=== PATIENT | male | born 1935 | race Caucasian/White ===

== ENCOUNTER 2019-08-13 00:30 | Inpatient (IN) | payer OTHER ==
[~2019-08-13] VITALS: Ht 180.3 cm; Wt 88.0 kg
[2019-08-13] VITALS (21 sets, daily range): BP systolic 84–136
--- NOTE | 2019-08-13 00:30 | NUR ---
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 Pt sent from [facility] r/t oxygen desaturation. Pts eyes open, tachypneic, mouth breathing, accessory muscle use, expiratory rales, SPO2 60% on mask with Neb tx in progress. Dr. Muñoz and RT called to bedside. Pt arrives with PICC line to LUE, no blood return, easy NS flush. G-tube secure with dsg clean, dry, intact. F/C secure and patent draining yellow urine to bag.
--- NOTE | 2019-08-13 00:35 | NUR ---
Dr. Muñoz at bedside.
--- NOTE | 2019-08-13 00:40 | NUR ---
RT at bedside to obtain ABG. SPO2 62% with good wave form on electronic device monitor. Pt DNR status. Dr. Muñoz aware.
[2019-08-13] MEDS ORDERED: IPRATROPIUM BROM 0.5 MG/2.5 ML VIAL.NEB (ATROVENT) INH ONE (00:45)
[2019-08-13] MEDS ORDERED: ALBUTEROL SULFATE 0.083% 2.5 MG/3 ML VIAL.NEB INH ONE (00:45)
--- NOTE | 2019-08-13 00:50 | NUR ---
Nitropaste noted to left chest wall. B/P 102/68. Nitropaste immediately removed and site cleaned, pat dry. Per ALS, Dionne Oliveira stated that pt was gesturing to chest and they interpreted as pt was experiencing C/P, therefore they placed Nitropaste.
--- NOTE | 2019-08-13 00:55 | NUR ---
# 18 gauge angiocath placed to RAC. Use of asceptic technique. Opsite placed over site. Blood return noted. Blood for lab drawn from site. Flushed with 10 cc of normal saline. No evidence of infiltration noted. Patient tolerated well.
--- NOTE | 2019-08-13 01:00 | NUR ---
RT at bedside. Neb tx continues. Pt remains tachypneic, RR 34, SPO2 66% and confirmed with portable O2 monitor.
--- NOTE | 2019-08-13 01:05 | NUR ---
Nasal tracheal sxn x 2 per RT. Scant amount of thick white sputum removed. SPO2 61% post sxn.
--- NOTE | 2019-08-13 01:10 | NUR ---
X-ray at bedside.
--- NOTE | 2019-08-13 01:25 | NUR ---
BiPAP settings per RT: ST, IPAP 14, EPAP 6, FiO2 100%, f 18.
--- NOTE | 2019-08-13 01:25 | NUR ---
Pt SPO2 67%. Pt placed on BiPAP per RT. SPO2 89%.
[2019-08-13 01:30] LABS: PLATELET COUNT (AUTO) 297 K/uL (130-430); WHITE BLOOD COUNT (AUTO) 14.3 K/uL (4.8-10.8)
[2019-08-13 01:35] LABS: BASOPHILS # (AUTO) 0.1 K/uL (0.0-0.2); BASOPHILS % (AUTO) 0.6 % (0.0-2.0); EOSINOPHILS # (AUTO) 0.1 K/uL (0.0-0.4); EOSINOPHILS % (AUTO) 0.8 % (0.0-4.0); HEMATOCRIT 41.7 % (36-54); HEMOGLOBIN 13.4 g/dL (14.0-18.0); LYMPHOCYTES # (AUTO) 3.7 K/uL (1.0-5.5); LYMPHOCYTES % (AUTO) 26.1 % (20.5-51.5); MEAN CORPUSCULAR HEMOGLOBIN 29 pg (27-31); MEAN CORPUSCULAR HGB CONC 32 % (32-36); MEAN CORPUSCULAR VOLUME 91 fL (79.0-98.0); MONOCYTES # (AUTO) 0.8 K/uL (0.0-1.0); MONOCYTES % (AUTO) 5.5 % (1.7-9.3); NEUTROPHILS # (AUTO) 9.6 K/uL (1.8-7.7); RED BLOOD CELL COUNT(AUTO) 4.59 MIL/uL (4.2-6.2); RED CELL DISTRIBUTION WIDTH 15.1 % (9.0-15.0)
[2019-08-13] MEDS ORDERED: MERO500V IV ×2 (01:37→01:52)
[2019-08-13] MEDS ORDERED: BISA10SU61 RC (01:37)
[2019-08-13] MEDS ORDERED: ONDA4VIA52 (01:37)
[2019-08-13 01:39] LABS: ANION GAP 10 (5-15); CALCIUM 8.3 mg/dL (8.4-11.0); CHLORIDE 100 mmol/L (98-107); CREATININE 1.17 mg/dL (0.55-1.30); POTASSIUM 4.6 mmol/L (3.5-5.1); SODIUM SERUM 138 mmol/L (136-145); UREA NITROGEN, BLOOD 31 mg/dL (8-21)
[2019-08-13] MEDS ORDERED: CARV6.2554 GT (01:39)
--- NOTE | 2019-08-13 01:40 | NUR ---
VSS, SPO2 100% on BiPAP.
[2019-08-13] MEDS ORDERED: DOCU-144 GT (01:44)
[2019-08-13] MEDS ORDERED: LEVO100T9 GT (01:46)
[2019-08-13] MEDS ORDERED: IPRA3AMP9 INH ×2 (01:47→01:48)
[2019-08-13 01:50] LABS: GLUCOSE 408 mg/dL (70-99)
[2019-08-13] MEDS ORDERED: NITR30OI TD (01:54)
[2019-08-13 01:56] LABS: ALANINE AMINOTRANSFERASE 61 U/L (12-78); ALBUMIN 2.1 g/dL (3.4-4.8); ASPARTATE AMINOTRANSFERASE 31 U/L (10-37)
[2019-08-13] MEDS ORDERED: ONDA2VIA IV (01:57)
[2019-08-13] MEDS ORDERED: PIPERACILLIN/TAZO 3.38 GM in D5W 50 ML IV ONE (02:00)
[2019-08-13] MEDS ORDERED: NACL 0.9% 2,000 ML IV ONE (02:00)
--- NOTE | 2019-08-13 02:00 | NUR ---
Pt resting quietly, BiPAP continues with no changes in settings. SPO2 100%. Family members at bedside, no needs verbalized at this time.
[2019-08-13] MEDS ORDERED: INSU100V9 SQ (02:07)
[2019-08-13] MEDS ORDERED: INSU100V42 (02:12)
[2019-08-13] MEDS ORDERED: FURO10VI27 IVP (02:13)
--- NOTE | 2019-08-13 02:55 | NUR ---
Pt resting quietly, BiPAP continues with no changes in settings. SPO2 98%. Family members at bedside, no needs verbalized at this time.
--- NOTE | 2019-08-13 03:00 | NUR ---
Family members at bedside to include pt.'s , daughter and son-n-law. No needs verbalized at this time.
[2019-08-13] MEDS ORDERED: PIPERACILLIN/TAZOBACTAM 3.375 GM/VIAL (ZOSYN) IV ONE (03:07)
--- NOTE | 2019-08-13 03:10 | NUR ---
Informed family members that prior to admit and as per standard of practice, F/C is to be changed. states that she does not want a new F/C placed.
[2019-08-13] MEDS ORDERED: NS 500 ML IV ONE (03:30)
--- NOTE | 2019-08-13 03:30 | NUR ---
Pt resting quietly, BiPAP continues with no changes in settings. SPO2 98%. Family member at bedside, no needs verbalized at this time.
[2019-08-13] MEDS ORDERED: PIPERACILLIN/TAZO 3.375 GM in NS 50 ML IV ONE (04:00)
--- NOTE | 2019-08-13 04:00 | NUR ---
Pt resting quietly, VSS, BiPAP continues with no changes in settings. SPO2 99%. Family members at bedside, no needs verbalized at this time.
--- NOTE | 2019-08-13 05:00 | NUR ---
Pt resting quietly, BiPAP continues with no changes in settings. SPO2 100%. Family member at bedside, no needs verbalized at this time.
--- NOTE | 2019-08-13 05:24 | NUR ---
Lab at bedside to draw second Lactic Acid.
--- NOTE | 2019-08-13 05:27 | NUR ---
Patient will be admitted to care of Fernando Jones Admitted to ICU unit. Will go to room 4. Belongings list completed. Complete and up to date summary report printed. SBAR report to be given at bedside with opportunity for questions.
--- NOTE | 2019-08-13 06:22 | NUR ---
CONSULTATION PAGED/CALLED Reason for Consultation: ARF Person Who was Notified: VERONICA Consulting Physician: DR. JEROME Ordering Physician: DR. COTTRELL
--- NOTE | 2019-08-13 06:23 | NUR ---
CONSULTATION PAGED/CALLED Reason for Consultation: CHF Person Who was Notified: VERONICA Consulting Physician: DR. TRINIDAD Ordering Physician: DR. COTTRELL
--- NOTE | 2019-08-13 06:30 | NUR ---
Recieved from ER via gurney and on bipap.Appear to be in no acute distress, open eyes and follow simple commands but non-verbal.has existing picc line over left arm and an ivl , gauge #[address] ac.Has back cath to osd , existing from the [facility] facility but the refused for it to be changed.has GT in place and clamped.Dr Perez contacted and made aware pt is here in icu but no additional orders were given.He said he's coming this morning to see the pt.
[2019-08-13] MEDS: NORMAL SALINE 5 ML DISP.SYRIN IVF SCH ×3 (06:47→22:23)
--- NOTE | 2019-08-13 07:15 | NUR ---
Report received from night RN using SBAR.
--- NOTE | 2019-08-13 07:15 | NUR ---
Report given to Young and aware that he has to do complete admission.
--- NOTE | 2019-08-13 08:00 | NUR ---
MD Rounds Dr Perez bedside. Orders received.
[2019-08-13] MEDS ORDERED: ACETAMINOPHEN 325 MG TABLET PO PRN (08:15)
[2019-08-13] MEDS ORDERED: POTASSIUM CHLORIDE 20 MEQ TAB.PRT.SR PO PRN (08:15)
[2019-08-13] MEDS ORDERED: ONDANSETRON HCL 4 MG/2 ML VIAL IVP PRN (08:15)
[2019-08-13] MEDS ORDERED: MAGNESIUM SULFATE 50 ML IV PRN (08:15)
[2019-08-13] MEDS ORDERED: MUPIROCIN 2% TOPICAL OINTMENT 22 GM NS PRN (08:15)
[2019-08-13] MEDS ORDERED: DOCUSATE SODIUM 100 MG CAPSULE PO PRN (08:15)
[2019-08-13] MEDS ORDERED: MORPHINE 2 MG/ML INJ. SYRINGE IVP PRN ×2 (08:15)
[2019-08-13] MEDS ORDERED: LORazepam 2 MG/ML VIAL IVP PRN (08:15)
[2019-08-13] MEDS ORDERED: DEXTROSE 50% JECT 50 ML DISP.SYRIN IVP PRN (08:15)
--- NOTE | 2019-08-13 08:30 | NUR ---
MD Rounds Dr Perdomo bedside. Orders received.
--- NOTE | 2019-08-13 09:00 | NUR ---
MD Rounds Dr Padma merino. Orders received.
[2019-08-13] MEDS: INSULIN LISPRO SLIDING SCALE 100 UNITS/ML VIAL (humaLOG) SUBCUT PRN ×2 (09:45→21:39)
[2019-08-13] MEDS ORDERED: CARVEDILOL 6.25 MG TABLET (COREG) PO ONE (10:00)
--- NOTE | 2019-08-13 10:00 | NUR ---
ECHOCARDIOGRAM bedside Called Dr Rouse with results. EF of 20% noted. Called Dr Perez to inform as well.
[2019-08-13] MEDS: HEPARIN SODIUM,PORCINE 5000 UNITS/ML VIAL SUBCUT SCH ×2 (11:01→21:39)
[2019-08-13] MEDS: FUROSEMIDE 40 MG/4 ML VIAL IVP SCH ×2 (11:02→21:34)
[2019-08-13] MEDS: cefTRIAXone 1 GM in D5W 50 ML IV SCH (11:02)
--- NOTE | 2019-08-13 12:59 | NUR ---
AM ASSESSMENT PT on Bipap 100% 12/02 PS 8. PT is tachypneic. No other visible signs of pain. Pt unable to verbally communicate. Pt family bedside. Will conduct intake assessment. Bed locked and in lowest position with call light in place. Will continue to monitor.
--- NOTE | 2019-08-13 13:07 | NUR ---
Called Dr Perez regarding PT feeding. Orders received for glucerna 1.5 @ 15cc/hr through PEG-T. With 250cc flush with NS Q6H.
[2019-08-13] MEDS: metroNIDAZOLE 500 mg/NS 100 ML IV SCH ×2 (14:00→23:43)
--- NOTE | 2019-08-13 14:00 | NUR ---
Initiated tube feeding through PEG tube. Glucerna 1.5 @ 15cc/hr.
--- NOTE | 2019-08-13 15:40 | NUR ---
MD ROUNDS Dr Perdomo bedside. Orders received.
--- NOTE | 2019-08-13 15:46 | NUR ---
Atetmpted to call a consult to Dr. Montez many times. The number goes to voice mail that requests up to 24 hours to call back. Message left. Called medical staff office to get a different number and had to leave a message on their VM as well.
[2019-08-13] MEDS: NACL 0.9% 1,000 ML IV SCH (15:57)
--- NOTE | 2019-08-13 16:10 | NUR ---
Still unable to get a hold of Dr. Montez via the office/exchange. Texted Dr Montez and informed him of an ICU consult without listing patients name. He replyed back "ok".
--- NOTE | 2019-08-13 16:20 | NUR ---
1320 TITRATED FIO2 DOWN TO 50%. SPO2 100, HR 89. PT TOLERATING WELL. CONTINUE TO MONITOR PT.
--- NOTE | 2019-08-13 16:31 | NUR ---
Soft restraint Place on PT left arm. Notified MD. Will continue to monitor.
--- NOTE | 2019-08-13 17:24 | NUR ---
1705 TITRATED FIO2 DOWN TO 40%. SPO2 99%, HR 85. PT TOLERATING WELL.
--- NOTE | 2019-08-13 19:15 | NUR ---
Endorsement Provided shift report to night RN using SBAR
--- NOTE | 2019-08-13 19:25 | NUR ---
Closing notes PT resting comfortably. No signs of distress or pain. Bed locked and in lowest position. Lights on in room.
--- NOTE | 2019-08-13 19:55 | NUR ---
Opening Note Pt in bed, Alert but confused. Able to track. Pt SR on the monitor. BIPAP noted, /. FIO2 40%. Pt has SULTANA PICC in place, and RAC18g SL. No s/s of infiltration noted, C/D/I. Pt has G-tube in place, running tubefeeding. tolerating well, no residual noted. Pt has back in place draining urine to gravity. Pt has restraint to Lt wrist for pulling on BIPAP. Bed locked in lowest position, call light in reach, and safety precautions in place. Will continue to monitor.
[2019-08-13] MEDS ORDERED: VANCOMYCIN HCL 1 GM/NS PREMIX 250 ML IV ONE (20:30)
[2019-08-13] MEDS ORDERED: CARVEDILOL 6.25 MG TABLET (COREG) PO SCH (21:00)
[2019-08-13] MEDS ORDERED: VANCOMYCIN HCL 1000 MG/VIAL IV ONE (21:22)
[2019-08-13 23:42] LABS: BILIRUBIN,URINE NEGATIVE (NEGATIVE); BLOOD, URINE 1+ (NEGATIVE); CLARITY/URINE CLEAR (CLEAR); COLOR,URINE YELLOW (YELLOW); GLUCOSE,URINE NEGATIVE (NEGATIVE); KETONES,URINE NEGATIVE (NEGATIVE); LEUKOCYTE ESTERASE ,URINE 2+ (NEGATIVE); NITRITE, URINE NEGATIVE (NEGATIVE); PH,URINE 7.5 (5.0-8.0); PROTEIN URINE NEGATIVE (NEGATIVE); UROBILINOGEN,URINE 0.2 (0.2-1.0)
[2019-08-13 23:49] LABS: BACTERIA,URINE MODERATE /HPF (None Seen)
[2019-08-14] VITALS (24 sets, daily range): BP systolic 95–139
--- NOTE | 2019-08-14 00:24 | NUR ---
RN Rounds Pt in bed asleep, no s/s of distress noted. Pt tolerating feeding, no residual noted. Will continue to monitor.
--- NOTE | 2019-08-14 03:46 | NUR ---
RN Rounds Pt in bed asleep. No s/s of distress noted. VSS. Will continue to monitor.
--- NOTE | 2019-08-14 05:00 | NUR ---
CHG CHG bath given and linens changed, Pt tolerated well. Will continue to monitor.
[2019-08-14] MEDS: NORMAL SALINE 5 ML DISP.SYRIN IVF SCH ×3 (05:23→22:08)
[2019-08-14] MEDS: metroNIDAZOLE 500 mg/NS 100 ML IV SCH ×3 (05:23→22:06)
--- NOTE | 2019-08-14 06:55 | NUR ---
Closing Note Pt in bed asleep. Alert to person and able to speak, but non comprehensible. BIPAP 14/6. FIO2 35%. No s/s of distress noted. Pt has G-tube running tubefeeding. Tolerating well, no residual noted. NS running in SULTANA PICC Line. Flushed with Ns, but no blood return noted. RAC 18g SL in place. Villavicencio catheter draining urine to gravity. Bed locked in lowest position, call light in reach, and safety precautions precautions in place, Will endorse to oncoming RN.
[2019-08-14 07:12] LABS: BASOPHILS % (AUTO) 0.4 % (0.0-2.0); EOSINOPHILS % (AUTO) 0.4 % (0.0-4.0); HEMATOCRIT 32.4 % (36-54); HEMOGLOBIN 10.8 g/dL (14.0-18.0); LYMPHOCYTES # (AUTO) 1.4 K/uL (1.0-5.5); MEAN CORPUSCULAR HEMOGLOBIN 29 pg (27-31); MEAN CORPUSCULAR HGB CONC 33 % (32-36); MEAN CORPUSCULAR VOLUME 88 fL (79.0-98.0); MONOCYTES # (AUTO) 1.2 K/uL (0.0-1.0); MONOCYTES % (AUTO) 10.2 % (1.7-9.3); NEUTROPHILS # (AUTO) 8.7 K/uL (1.8-7.7); PLATELET COUNT (AUTO) 184 K/uL (130-430); RED BLOOD CELL COUNT(AUTO) 3.68 MIL/uL (4.2-6.2); RED CELL DISTRIBUTION WIDTH 14.7 % (9.0-15.0); WHITE BLOOD COUNT (AUTO) 11.4 K/uL (4.8-10.8)
--- NOTE | 2019-08-14 07:16 | NUR ---
Endorsement Pt report given to oncoming RN at bedside via SBAR approach.
--- NOTE | 2019-08-14 07:20 | NUR ---
Opening Note Received patient report from endorsing RN via SBAR
--- NOTE | 2019-08-14 08:00 | NUR ---
AM ASSESSMENT. PT ALERT WHEN APPROACHED, FULL MASK BIPAP IN USE, O2 SATURATION 99%, RESTRAINT REMOVED AND REPLACED TO LEFT WRIST, TURNED AND REPOSITIONED TO HIS SIDE, PLACED HIS HEAD AT 35 DEGREE ANGLE AFTER CARE, TUBE FEEDING VIA GTUBE AT 15 ML PER HR, GTUBE SITE CLEAN, WEBSTER CATHETER DRAINING WELL.
[2019-08-14 08:03] LABS: ALANINE AMINOTRANSFERASE 39 U/L (12-78); ALBUMIN 1.8 g/dL (3.4-4.8); ANION GAP 6 (5-15); ASPARTATE AMINOTRANSFERASE 35 U/L (10-37); CALCIUM 8.5 mg/dL (8.4-11.0); CHLORIDE 107 mmol/L (98-107); CREATININE 0.95 mg/dL (0.55-1.30); GLUCOSE 175 mg/dL (70-99); POTASSIUM 3.9 mmol/L (3.5-5.1); SODIUM SERUM 143 mmol/L (136-145); THYROID STIMULATING HORMONE 4.98 uIu/mL (0.36-3.74); UREA NITROGEN, BLOOD 35 mg/dL (8-21)
--- NOTE | 2019-08-14 08:30 | NUR ---
Md Round Dr. Rouse at bedside assessing patient, physician entered orders
[2019-08-14] MEDS ORDERED: METOLAZONE 5 MG TABLET PO ONE (08:45)
[2019-08-14] MEDS: FUROSEMIDE 40 MG/4 ML VIAL IVP SCH ×2 (08:55→20:51)
[2019-08-14] MEDS: cefTRIAXone 1 GM in D5W 50 ML IV SCH (08:57)
[2019-08-14] MEDS: CARVEDILOL 6.25 MG TABLET (COREG) PO SCH ×2 (08:59→20:52)
[2019-08-14] MEDS: HEPARIN SODIUM,PORCINE 5000 UNITS/ML VIAL SUBCUT SCH ×2 (09:00→21:10)
--- NOTE | 2019-08-14 09:43 | NUR ---
RT NOTES Placed pt on 4L n/c w/ reservoir (oxymizer) per dr ortiz's order. Pt. said breathing became difficult, placed back on bipap w/ same settings w/ 50% FIO2 per ABG result and titration order. will monitor pt.
[2019-08-14] MEDS: VANCOMYCIN HCL 1,000 MG in NS 250 ML IV SCH ×2 (09:55→20:53)
--- NOTE | 2019-08-14 10:30 | NUR ---
MD Round Dr. Perdomo at bedside and assessing patient, entered orders
--- NOTE | 2019-08-14 11:28 | NUR ---
Nutrition Update Marky Scale 15 noted. Pt admitted for acute respiratory failure. Diet: Glucerna 1.5 at 15 ml/hr, Free Water Flush: 250 via GT BMI: 26.9 kg/m2 RD to follow per nutrition care standards.
[2019-08-14] MEDS: INSULIN LISPRO SLIDING SCALE 100 UNITS/ML VIAL (humaLOG) SUBCUT PRN ×2 (12:11→17:45)
--- NOTE | 2019-08-14 14:30 | NUR ---
Dietitian Recommendations * Recommend Glucerna 1.5 at 65 ml/hr, Free Water Flush: 100 ml Q6h via GT Provides: 2340 kcal/day, 129 gm protein/day, and 1584 ml free water/day Meets: 98% of upper end of estimated caloric needs and 98% of lower end of estimated protein needs Monitor/Evaluation Comment RD spoke w/ Dr. Doe who was agreeable w/ MARTINE rec LP, RD Please refer to Nutrition Assessment for details. Addendum: 08/14/19 at [address] Amended: Links added.
[2019-08-14] MEDS: NACL 0.9% 1,000 ML IV SCH (14:52)
--- NOTE | 2019-08-14 17:00 | NUR ---
Nursing Note Tube-feeding rate increased to 65mL/hr as prescribed by MD. Current residual is 10mL
--- NOTE | 2019-08-14 18:00 | NUR ---
Nursing Note Current residual is 10mL, patient tolerating tube feeding rate of 65mL/hr. 100mL of free water flush was given, patient tolerated well.
--- NOTE | 2019-08-14 19:25 | NUR ---
Closing Note Patient report given to receiving RN via SBAR communication
[2019-08-15] VITALS (20 sets, daily range): BP systolic 90–127
[2019-08-15] MEDS: metroNIDAZOLE 500 mg/NS 100 ML IV SCH ×3 (05:38→21:49)
[2019-08-15] MEDS: NORMAL SALINE 5 ML DISP.SYRIN IVF SCH ×3 (05:43→22:18)
[2019-08-15 06:57] LABS: ALANINE AMINOTRANSFERASE 35 U/L (12-78); ALBUMIN 1.8 g/dL (3.4-4.8); ANION GAP 7 (5-15); ASPARTATE AMINOTRANSFERASE 23 U/L (10-37); CALCIUM 8.7 mg/dL (8.4-11.0); CHLORIDE 105 mmol/L (98-107); CREATININE 0.87 mg/dL (0.55-1.30); GLUCOSE 196 mg/dL (70-99); POTASSIUM 3.6 mmol/L (3.5-5.1); SODIUM SERUM 141 mmol/L (136-145); TOTAL BILIRUBIN 0.6 mg/dL (0.0-1.0); UREA NITROGEN, BLOOD 42 mg/dL (8-21)
[2019-08-15] MEDS: INSULIN LISPRO SLIDING SCALE 100 UNITS/ML VIAL (humaLOG) SUBCUT PRN ×3 (07:04→16:28)
--- NOTE | 2019-08-15 07:25 | NUR ---
RECEIVED NURSING REPORT FROM DEAN SHABAZZ R.N
--- NOTE | 2019-08-15 07:30 | NUR ---
SEE PATIENT, ORDERED FOLLOW UP LAB IN A.M
--- NOTE | 2019-08-15 08:40 | NUR ---
Dr. BOATENG SEE PATIENT, ORDERED KEEP SAME ANTIBIOTICS THERAPY
[2019-08-15 09:04] LABS: BASOPHILS # (AUTO) 0.1 K/uL (0.0-0.2); BASOPHILS % (AUTO) 0.6 % (0.0-2.0); EOSINOPHILS # (AUTO) 0.1 K/uL (0.0-0.4); EOSINOPHILS % (AUTO) 1.6 % (0.0-4.0); HEMATOCRIT 32.2 % (36-54); HEMOGLOBIN 10.7 g/dL (14.0-18.0); LYMPHOCYTES # (AUTO) 1.4 K/uL (1.0-5.5); LYMPHOCYTES % (AUTO) 15.6 % (20.5-51.5); MEAN CORPUSCULAR HEMOGLOBIN 30 pg (27-31); MEAN CORPUSCULAR HGB CONC 33 % (32-36); MEAN CORPUSCULAR VOLUME 89 fL (79.0-98.0); MONOCYTES # (AUTO) 0.9 K/uL (0.0-1.0); MONOCYTES % (AUTO) 10.6 % (1.7-9.3); NEUTROPHILS # (AUTO) 6.2 K/uL (1.8-7.7); NEUTROPHILS % (AUTO) 71.6 % (40.0-70.0); PLATELET COUNT (AUTO) 181 K/uL (130-430); RED BLOOD CELL COUNT(AUTO) 3.61 MIL/uL (4.2-6.2); RED CELL DISTRIBUTION WIDTH 14.6 % (9.0-15.0); WHITE BLOOD COUNT (AUTO) 8.7 K/uL (4.8-10.8)
[2019-08-15] MEDS: cefTRIAXone 1 GM in D5W 50 ML IV SCH (10:01)
[2019-08-15] MEDS: VANCOMYCIN HCL 1,000 MG in NS 250 ML IV SCH ×2 (10:04→20:32)
[2019-08-15] MEDS: CARVEDILOL 6.25 MG TABLET (COREG) PO SCH ×2 (10:05→20:34)
[2019-08-15] MEDS: FUROSEMIDE 40 MG/4 ML VIAL IVP SCH ×2 (10:06→20:32)
[2019-08-15] MEDS: HEPARIN SODIUM,PORCINE 5000 UNITS/ML VIAL SUBCUT SCH ×2 (10:11→20:46)
--- NOTE | 2019-08-15 11:28 | NUR ---
RT NOTES Pt off of bipap and on 6L oxymizer per Dr Perdomo's order. No adverse reactions noted. @1135 pt cont to tolerate w/ no signs of distress. Saturation 94% H.R 61 R.R. 19. at bedside. Will monitor pt.
--- NOTE | 2019-08-15 11:30 | NUR ---
AT 1123 A.M, SEE PATIENT, ORDERED HOLD BIPAP ,CHANGED TO OXIMIZER 6 LPM, O2 SAT. 94-97%, KEEP CLOSE MONITOR
--- NOTE | 2019-08-15 11:50 | NUR ---
ORDERED GIVE FREE WATER 100 ML VIA G-T EVERY 6 HOURS
--- NOTE | 2019-08-15 13:28 | NUR ---
RT NOTES Pt. cont. to tolerate being off of bipap. No distress noted. saturation 100% H.R 57
[2019-08-15] MEDS: NACL 0.9% 1,000 ML IV SCH (16:22)
--- NOTE | 2019-08-15 19:12 | NUR ---
GIVE COMPLETE NURSING REPORT TO MILD DISABILITIES TEACHERDRU SHABAZZ R.N
[2019-08-16] VITALS (11 sets, daily range): BP systolic 101–118
[2019-08-16] MEDS: NACL 0.9% 1,000 ML IV SCH (02:50)
[2019-08-16 05:50] LABS: BASOPHILS % (AUTO) 0.6 % (0.0-2.0); EOSINOPHILS # (AUTO) 0.2 K/uL (0.0-0.4); EOSINOPHILS % (AUTO) 2.1 % (0.0-4.0); HEMATOCRIT 29.9 % (36-54); LYMPHOCYTES # (AUTO) 1.4 K/uL (1.0-5.5); LYMPHOCYTES % (AUTO) 18.6 % (20.5-51.5); MEAN CORPUSCULAR HEMOGLOBIN 29 pg (27-31); MEAN CORPUSCULAR HGB CONC 34 % (32-36); MEAN CORPUSCULAR VOLUME 88 fL (79.0-98.0); MONOCYTES # (AUTO) 0.6 K/uL (0.0-1.0); MONOCYTES % (AUTO) 8.9 % (1.7-9.3); NEUTROPHILS # (AUTO) 5.1 K/uL (1.8-7.7); NEUTROPHILS % (AUTO) 69.8 % (40.0-70.0); PLATELET COUNT (AUTO) 186 K/uL (130-430); RED CELL DISTRIBUTION WIDTH 14.6 % (9.0-15.0); WHITE BLOOD COUNT (AUTO) 7.3 K/uL (4.8-10.8)
--- NOTE | 2019-08-16 05:55 | NUR ---
ADMISSION RECEIVED PATIENT FROM ICU, PATIENT A/OX1, FOLLOWS SIMPLE COMMANDS, VITALS STABLE, NO SIGNS OF ANY PAIN AND DISCOMFORT NOTED. NEEDS ATTENDED TO. SAFETY, FALL AND ASPIRATION PRECAUTION IN PLACED. BED IN LOW AND LOCKED POSITION. BED ALARM ON. WILL CONTINUE TO MONITOR.
[2019-08-16 06:01] LABS: CALCIUM 8.6 mg/dL (8.4-11.0); CHLORIDE 103 mmol/L (98-107); CREATININE 0.92 mg/dL (0.55-1.30); GLUCOSE 180 mg/dL (70-99); POTASSIUM 3.3 mmol/L (3.5-5.1); SODIUM SERUM 140 mmol/L (136-145); UREA NITROGEN, BLOOD 42 mg/dL (8-21)
[2019-08-16] MEDS: metroNIDAZOLE 500 mg/NS 100 ML IV SCH ×3 (06:03→21:34)
[2019-08-16] MEDS: NORMAL SALINE 5 ML DISP.SYRIN IVF SCH ×3 (06:04→21:40)
[2019-08-16 06:14] LABS: ANION GAP 5 (5-15)
--- NOTE | 2019-08-16 06:45 | NUR ---
CLOSING NOTES ACCU CHECK DONE, BLOOD SUGAR 135. NO INSULIN COVERAGE PER SLIDING SCALE. ALL NEEDS ATTENDED TO. NO PAIN AND DISCOMFORT NOTED, VITALS STABLE. WILL ENDORSE TO INCOMING SHIFT NURSE.
--- NOTE | 2019-08-16 07:20 | NUR ---
Opening Note Received bedside report from endorsing RN for continuation of care. Received patient awake and resting in bed, no signs or symptoms of acute distress noted. Bed locked in lowest position, bed alarm on, and call light within reach. Fall and safety precautions in place.
--- NOTE | 2019-08-16 08:45 | NUR ---
Dr. Rouse in to see patient. No new orders.
[2019-08-16] MEDS: CARVEDILOL 6.25 MG TABLET (COREG) PO SCH ×2 (09:00→21:00)
[2019-08-16] MEDS: cefTRIAXone 1 GM in D5W 50 ML IV SCH (09:20)
[2019-08-16] MEDS: VANCOMYCIN HCL 1,000 MG in NS 250 ML IV SCH (09:20)
[2019-08-16] MEDS: FUROSEMIDE 40 MG/4 ML VIAL IVP SCH ×2 (09:21→21:34)
[2019-08-16] MEDS: HEPARIN SODIUM,PORCINE 5000 UNITS/ML VIAL SUBCUT SCH ×2 (09:25→21:37)
--- NOTE | 2019-08-16 10:45 | NUR ---
Dr. Perdomo at bedside examining patient. New orders received.
[2019-08-16] MEDS: INSULIN LISPRO SLIDING SCALE 100 UNITS/ML VIAL (humaLOG) SUBCUT PRN (11:41)
--- NOTE | 2019-08-16 13:18 | NUR ---
Patient's and daughter at bedside. All questions answered clearly and education provided.
--- NOTE | 2019-08-16 16:21 | NUR ---
DC PLANNING: Date: Aug 16, 2019 Time 15:[address] Fernando COTTRELL Information Obtained From Family Admitted Within 30 Days Yes - LTAC [facility] LAST WEEK Initial D/C Screening From ER Primary Language Khmer Bow Stapler Required No Financial Resources Medicare Emergency Contact Name RADHA (DAUGHTER) Emergency Contact Cognition Lethargic Confused Ambulation Ability Full Assist ADLs Full Assist Physical Limitation(s) Visual Usual Living Arrangements-Patient Resides With: LTC Patient Admitted From Name of Facility/Custodial/Hospice [facility] (FAMILY DOES NOT WANT TO GO BACK) Currently on Hemodialysis No Current Cognition Lethargic Patient Knows Admitting Diagnosis? No Patient Knows Prognosis and/or POC? No - FAMILY WANTS MEETING WITH MD FOR PLAN Current Ambulation Ability Full Assist Current ADL Ability Full Assist Current Physical Limitations Gait Swallowing Family Support Yes Any SS Need Above Marked, Refer to Server Service Assistant No Discharge Needs/Plans LTAC Other Discharge Needs/Plans FAMILY REQUESTING LTAC Anticipated D/C Planning Needs IV/IM Medications Oxygen Rehab Services Transportation Management Ability Ambulance Discharge Plan Discussed With PT/PT's Representitive AND DAUGHTER Patient Choice of Vendor List Given to Pt/Pt Patient Monitor Yes Resource List or Tablet Given to Pt/Pt Patient Monitor Yes Readmission Risks Identified Yes DC Plan Comments SPOKE WITH DAUGHTER RADHA PHONE NUMBER [phone] WHO ADVISED ZULEYMA WAS LONG STAY AT [facility] FOR 21 DAYS RECENTLY DISCHARGED TO [facility] DORENE WAS THERE FOR 3 WEEKS AND D/C TO [facility] LAST Friday08/12/19 AT 8PM TO SNF FAMILY STATES PATIENT SHOWED SIGNED OF LABORED BREATHING AND HAD SOME CARE RELATED ISSUES THAT WERE ADDRESS BY NURSING STAFF AT [facility]. UNFORTUNATELY PER FAMILY BY 10PM SHE WAS BEING ADMITTED TO [facility]. FAMILY REQUESTING DC PLAN TO LTAC FOR IV ABX AND OXYGEN NEEDS. FAMILY HAS SNF CONCERNS THEY FEEL PATIENT NEEDS HIGHER LEVEL OF CARE. DAUGHTER REQUESTING FAMILY MEETING WITH PRIMARY ATTENDING DR COTTRELL FOR DISCUSSION OF TREATMENT PLAN. CM TRIED TO ARRANGE FOR TOMORROW 08/17/19 HOWEVER PT'S HAS APPOINTMENT TOMORROW ONLY AVAILABLE BY [facility] TOMORROW BUT CAN MEET WITH DR COTTRELL ON OR FRI. NOTIFIED DR COTTRELL OF FAMILY REQUEST FOR MEETING/CONTACT REGARDING DC PLANNING. DISCUSSED PATENT RIGHTS WITH FAMILY CHOICE OF FACILITY AND RIGHT TO APPEAL D/C WITH IMPORTANT MESSAGE FROM MEDICARE. CM ANTICIPATES DC PLAN TO LTAC VERSUS POSSIBLY SUBACUTE.
--- NOTE | 2019-08-16 18:50 | NUR ---
Patient resting in bed, arousable to voice and touch. Patient denies any SOB or pain. No signs or symptoms of acute distress noted. Bed locked in lowest position, bed alarm on, and call light within reach. Fall and safety precautions in place. Will endorse bedside report to oncoming RN for continuation of care.
--- NOTE | 2019-08-16 19:25 | NUR ---
OPENING NOTES Received bedside report from morning shift RN. Patient is resting in bed, eyes closed, breathing evenly and nonlabored, patient has an Oxymizer on 5L. No s/s of acute distress at this time. Patient has a PICC on the left upper arm, IV on right AC, both patent and benign, no s/s of infection or infiltration noted. Patient has a Villavicencio attached, secured, and draining by gravity. Call light is within reach, educated patient dermatology nurse practitioner light system, patient is too drowsy to respond at this time. Patient has a GT, feeding running at 65mL/hr, IVF running. Bed is locked, armed and at lowest position. Will continue to monitor.
--- NOTE | 2019-08-16 19:25 | NUR ---
Endorsement Endorsed bedside report to oncoming RN using SBAR approach for continuation of care.
--- NOTE | 2019-08-16 21:35 | NUR ---
MEDICATIONS/ROUNDS Patient is resting in bed, awake, oriented x 1, breathing evenly and nonlabored. NOEMI Camejo at bedside, hygiene care performed. Educated patient on medications, patient unable to state understanding due to confusion and only said "ok." Administered medications, patient tolerated them well. Patient denies any pain at this time. No s/s of acute distress at this time. No other needs at this time. Fall/safety precautions.
--- NOTE | 2019-08-16 23:45 | NUR ---
ROUNDS Patient is resting in bed, eyes closed, breathing easy and nonlabored. No s/s of acute distress at this time. No other needs at this time. Fall/safety/aspiration precautions.
--- NOTE | 2019-08-17 02:00 | NUR ---
ROUNDS Patient is resting in bed, eyes closed, breathing easy and nonlabored. Readjusted Oxymizer on patient's face. No s/s of acute distress at this time. No other needs at this time. Fall/safety/aspiration precautions.
--- NOTE | 2019-08-17 04:15 | NUR ---
ROUNDS Patient is resting in bed, eyes closed, breathing evenly and nonlabored. No s/s of distress at this time. No other needs at this time. Fall/safety precautions.
[2019-08-17] MEDS: metroNIDAZOLE 500 mg/NS 100 ML IV SCH ×2 (06:13→15:39)
[2019-08-17] MEDS: INSULIN LISPRO SLIDING SCALE 100 UNITS/ML VIAL (humaLOG) SUBCUT PRN ×3 (06:21→17:09)
--- NOTE | 2019-08-17 06:30 | NUR ---
CLOSING NOTES Patient is resting in bed, awake, breathing evenly and nonlabored. Educated patient on medications, patient unable to state understanding due to confusion. Administered medication, patient tolerated it well. BS check done, coverage needed, educated patient on medication, patient unable to state understanding, administered medication, patient tolerated it well. Patient continues to be on restraint on left wrist due to attempting to pull lines and tubes. Will report plan of care and endorse to morning shift RN. Fall/safety/aspiration precautions.
[2019-08-17 07:00] LABS: BASOPHILS % (AUTO) 0.6 % (0.0-2.0); EOSINOPHILS # (AUTO) 0.1 K/uL (0.0-0.4); EOSINOPHILS % (AUTO) 2.2 % (0.0-4.0); HEMATOCRIT 30.6 % (36-54); HEMOGLOBIN 10.4 g/dL (14.0-18.0); LYMPHOCYTES # (AUTO) 1.3 K/uL (1.0-5.5); LYMPHOCYTES % (AUTO) 20.8 % (20.5-51.5); MEAN CORPUSCULAR HEMOGLOBIN 30 pg (27-31); MEAN CORPUSCULAR HGB CONC 34 % (32-36); MEAN CORPUSCULAR VOLUME 88 fL (79.0-98.0); MONOCYTES # (AUTO) 0.6 K/uL (0.0-1.0); MONOCYTES % (AUTO) 9.9 % (1.7-9.3); NEUTROPHILS # (AUTO) 4.3 K/uL (1.8-7.7); NEUTROPHILS % (AUTO) 66.5 % (40.0-70.0); PLATELET COUNT (AUTO) 197 K/uL (130-430); RED CELL DISTRIBUTION WIDTH 14.6 % (9.0-15.0); WHITE BLOOD COUNT (AUTO) 6.4 K/uL (4.8-10.8)
[2019-08-17 07:18] LABS: ANION GAP 5 (5-15); CALCIUM 8.9 mg/dL (8.4-11.0); CHLORIDE 103 mmol/L (98-107); CREATININE 0.98 mg/dL (0.55-1.30); GLUCOSE 188 mg/dL (70-99); POTASSIUM 3.6 mmol/L (3.5-5.1); SODIUM SERUM 141 mmol/L (136-145); UREA NITROGEN, BLOOD 43 mg/dL (8-21)
--- NOTE | 2019-08-17 07:47 | NUR ---
Opening Notes Received bedside SBAR report from manager night RN, patient in bed resting, respirations even and unlabored on 5L Oxymizer, Villavicencio catheter draining to gravity, G-tube feeding running, head of bed elevated 30 degrees, patient tolerating well, bed in low and locked position with bed alarm on, call light in reach
[2019-08-17 08:00] VITALS: BP_SYST 106
[2019-08-17] MEDS ORDERED: COMMUNICATION ORDER XX ONE (08:15)
[2019-08-17] MEDS ORDERED: ACETAMINOPHEN 325 MG TABLET GT PRN (08:21)
[2019-08-17] MEDS ORDERED: DOCUSATE SODIUM 100 MG/10 ML UDC GT PRN (08:21)
[2019-08-17] MEDS ORDERED: CARVEDILOL 12.5 MG TABLET (COREG) GT SCH (08:24)
[2019-08-17] MEDS: FUROSEMIDE 40 MG/4 ML VIAL IVP SCH ×2 (08:54→09:00)
[2019-08-17] MEDS: NACL 0.9% 1,000 ML IV SCH (08:55)
[2019-08-17] MEDS: HEPARIN SODIUM,PORCINE 5000 UNITS/ML VIAL SUBCUT SCH (08:57)
[2019-08-17] MEDS: cefTRIAXone 1 GM in D5W 50 ML IV SCH (08:57)
--- NOTE | 2019-08-17 09:00 | NUR ---
Incontinent Patient incontinent of bowel, patient cleaned and assisted to reposition, patient tolerated well, head of bed elevated 30 degrees, call light in reach
--- NOTE | 2019-08-17 09:10 | NUR ---
Physician Rounds Dr. Rouse at bedside examining patient, informed Dr. Rouse of patients blood pressure 106/58 and heart rate of 63, per Dr. Rouse ok to give scheduled Coreg and hold Lasix IVP, per Dr. Rouse he will change orders for Lasix
--- NOTE | 2019-08-17 09:33 | NUR ---
Physician Rounds Dr. Perez at bedside examining patient
--- NOTE | 2019-08-17 11:09 | NUR ---
Magnesium Level Magnesium level on 08/16/19 was 1.6, informed Dr. Perez that PRN Mag replacement will be administered this morning, ok per Dr. Perez
[2019-08-17 11:19] VITALS: BP_SYST 136
--- NOTE | 2019-08-17 11:20 | NUR ---
Tube Feeding Patients feeding and tubing replaced, head of bed elevated 30 degrees, patient is tolerating well, zero residual, patients family at bedside, educated patients family on purpose of elevating head of bed, patients family verbalized understanding
--- NOTE | 2019-08-17 11:52 | NUR ---
Discharge Planning: DCP received message sergio Lazcano at [facility] patient accepted to [facility], will give room when DC order is given Addendum: 08/17/19 at 1355 by Ree Martinez DP DCCecy made Jaleesa at [facility] aware a DC order issued, she will call with a room #. SUJATAP to follow up. Addendum: 08/17/19 at 1615 by Ree Martinez DP per Jaleesa at [facility] ([phone]) Rm [id number] after 7:00pm, CM arranged transportation
--- NOTE | 2019-08-17 14:00 | NUR ---
Incontinent patient incontinent of bowel, patient cleaned and assisted to reposition, patient tolerated well, HOB elevated.
[2019-08-17 15:12] VITALS: BP_SYST 100
--- NOTE | 2019-08-17 16:16 | NUR ---
DC Planning: Ann Yepez: assigned room # 314B , RN to report [phone]. >>Booked with [facility], ALS , cutter machine tender , oxygen. tel [phone], lemon picker time at 1930 -- [place]/April for RADHA Angulo made aware. >> Pt's dtr/Nellie made aware. She agreed with the transfer to [facility] this pm.
--- NOTE | 2019-08-17 16:30 | NUR ---
Restraints restraints removed at this time, patient is calm and not pulling at tubes or lines, no acute distress noted.
--- NOTE | 2019-08-17 18:21 | NUR ---
Spoke with Patients daughter spoke with patients daughter Zaida, [facility], Zaida verbalized understanding and is agreeable for transfer.
[2019-08-17 18:30] VITALS: BP_SYST 100
--- NOTE | 2019-08-17 18:41 | NUR ---
Called Report called report to Ann, gave SBAR report to Emma, informed her of pickup time 1929
--- NOTE | 2019-08-17 19:20 | NUR ---
Transfer Provided patient with discharge packet and instructions, no pain noted, no acute distress noted, PICC line to left upper arm clean, dry and intact, hospital ID band removed, plain ID band in place, report given to ambulance, all belongings sent with patient, patients family at bedside for discharge, patient transferred via gurney by ALS ambulance on monitor worker and 5L Oxymizer
[2019-08-17] MEDS ORDERED: FUROSEMIDE 40 MG TABLET GT SCH (21:00)
== END 2019-08-17 19:20 | DRG 871 ==
LOC: SED 00:30 → SIC 03:36 → STU 08-16 06:22
PROVIDERS: ADMIT General Practice; ATTEND General Practice
PROC: 5A09457 Assistance with Respiratory Ventilation, 24-96 Consecutive Hours, Continuous Positive Airway Pressure (ICD-10-PCS; principal; 2019-08-13)
DX: A41.9 Sepsis, unspecified organism (principal); E43 Unspecified severe protein-calorie malnutrition; J69.0 Pneumonitis due to inhalation of food and vomit; I50.43 Acute on chronic combined systolic (congestive) and diastolic (congestive) heart failure; G93.41 Metabolic encephalopathy; J15.6 Pneumonia due to other Gram-negative bacteria; J96.01 Acute respiratory failure with hypoxia; I42.0 Dilated cardiomyopathy; J44.0 Chronic obstructive pulmonary disease with (acute) lower respiratory infection; N39.0 Urinary tract infection, site not specified; E03.9 Hypothyroidism, unspecified; E11.65 Type 2 diabetes mellitus with hyperglycemia; G20 Parkinson's disease; G30.9 Alzheimer's disease, unspecified; F02.80 Dementia in other diseases classified elsewhere, unspecified severity, without behavioral disturbance, psychotic disturbance, mood disturbance, and anxiety; I11.0 Hypertensive heart disease with heart failure; I25.10 Atherosclerotic heart disease of native coronary artery without angina pectoris; R13.10 Dysphagia, unspecified; Y95 Nosocomial condition; D64.9 Anemia, unspecified; Z66 Do not resuscitate; Z68.27 Body mass index [BMI] 27.0-27.9, adult; Z88.0 Allergy status to penicillin; Z88.1 Allergy status to other antibiotic agents; Z74.01 Bed confinement status; Z87.891 Personal history of nicotine dependence; Z93.1 Gastrostomy status
CPT/HCPCS: 36415; 36600; 71045; 80048; 80053; 81000-TC; 82803-TC; 82962; 83036; 83605; 83735-TC; 83880; 84443-TC; 84484; 85025; 87040-TC; 87081; 87086; 93005; 93306; 94640; 94660; 94760; 96361; 96365; 99291; G0378; J0696; J1644; J1940; J2543; J3370; J3475; J3490; J7030; J7040; J7050; J7060; J7613